=== PATIENT | male | born 1985 | race Caucasian/White ===

== ENCOUNTER 2022-06-08 18:33 | Inpatient (IN) | payer SELFPAY ==
[2022-06-08 19:00] LABS: #Basophils 0.1 thou/uL (0.0-0.2); #Eosinphils 0.1 thou/uL (0.0-0.7); #Monocytes 0.5 thou/uL (0.11-0.59); #Neutrophils 2.9 thou/uL (1.40-6.50); %Basophils 0.9 % (0.0-1.0); %Eosinophils 1.5 % (0.0-10.0); %Lymphocytes 46.3 % (21.0-51.0); %Neutrophils 44.3 % (42.0-75.0); Hemoglobin 15.7 g/dL (14.0-18.0); Mean Corpuscular HGB CONC 35.7 g/dL (32.0-36.0); Mean Corpuscular Hemoglobin 31.5 pg (27.0-31.0); Mean Corpuscular Volume 88.2 fL (78.0-98.0); Platelet Count 259 thou/uL (130-400); RBC Distribution Width 13.2 % (11.5-14.5); Red Blood Cell (RBC) Count 4.97 mill/uL (4.70-6.10); White Blood Cell (WBC) Count 6.4 thou/uL (4.8-10.8)
[2022-06-08] MEDS ORDERED: Folic Acid 1 MG TAB ONE (19:14)
[2022-06-08 19:21] LABS: ALT (SGPT) 29 U/L (8-55); AST (SGOT) 21 U/L (5-34); Acetaminophen Less than 10.0 mcg/mL (10.0-30.0); Albumin 4.5 g/dL (3.5-5.0); Alcohol 151 mg/dL (Less than 10); Alkaline Phosphatase 58 U/L (40-110); Anion Gap 15 mmol/L (10-20); BUN (Urea Nitrogen) 15 mg/dL (8.9-20.6); Bilirubin, Total 0.4 mg/dL (0.2-1.2); Calc. Creatinine Clearance 0 mL/min (70-130); Calcium 9.1 mg/dL (7.8-10.44); Carbon Dioxide 23 mmol/L (22-29); Chloride 106 mmol/L (98-107); Estimated GFR 92; Globulin 3.1 g/dL (2.4-3.5); Glucose 92 mg/dL (70-105); Protein, Total 7.6 g/dL (6.0-8.3); Salicylate Less than 8.0 mg/dL (15.0-30.0); Sodium 140 mmol/L (136-145)
[2022-06-08 19:51] LABS: Lipase 31 U/L (8-78); Magnesium 2.1 mg/dL (1.6-2.6)
[2022-06-08] MEDS ORDERED: chlordiazePOXIDE HCl 25 MG CAP PO SCH (20:00)
[2022-06-08 20:30] LABS: Amphetamine Not Detected (NotDetected); Barbiturates Screen Not Detected (NotDetected); Benzodiazepine Screen Detected (NotDetected); Cocaine Metabolite Screen Not Detected (NotDetected); Methadone Not Detected (NotDetected); Methamphetamine Not Detected (NotDetected); Opiate Screen Not Detected (NotDetected); Oxycodone Screen Not Detected (NotDetected); Phencyclidine (PCP) Not Detected (NotDetected); THC/Cannabinoid Screen Not Detected (NotDetected); Tricyclic Screen Not Detected (NotDetected)
[2022-06-08] MEDS ORDERED: Aspirin Chewable 81 MG TAB ONE (20:53)
[2022-06-08] MEDS ORDERED: Ondansetron ODT 4 MG TAB SL PRN (22:30)
[2022-06-08] MEDS ORDERED: Ondansetron PF 4 MG/2 ML Vial IVP PRN (22:30)
[2022-06-08] MEDS ORDERED: Acetaminophen 325 MG TAB PO PRN (22:30)
[2022-06-08] MEDS: Sodium Chloride 0.9% 1,000 ML IV SCH (22:58)
[2022-06-08] MEDS: Nicotine 14 MG PATCH TD SCH (23:08)
[2022-06-08 23:09] VITALS: BMI 32.8
[2022-06-08] MEDS ORDERED: Triple Antibiotic Ointment 15 GM TUBE TOP SCH (23:15)
[2022-06-08 23:47] LABS: Troponin I Less than 0.010 ng/mL (< 0.028)
[2022-06-09] MEDS ORDERED: Lorazepam 0.5 MG TAB PO SCH ×2 (00:30→13:00)
[2022-06-09] MEDS ORDERED: Electrolyte Replacement Protocol 1 EACH FS PRN (01:30)
[2022-06-09 02:01] LABS: Troponin I Less than 0.010 ng/mL (< 0.028)
[2022-06-09] MEDS: chlordiazePOXIDE HCl 25 MG CAP PO SCH ×2 (02:16→08:40)
[2022-06-09] MEDS: Sodium Chloride 0.9% 1,000 ML IV SCH (05:58)
[2022-06-09] MEDS: Triple Antibiotic Ointment 15 GM TUBE TOP SCH ×2 (11:13→20:17)
[2022-06-09] MEDS ORDERED: Ondansetron PF 4 MG/2 ML Vial IVP PRN (11:33)
[2022-06-09] MEDS: Lorazepam 1 MG TAB PO PRN ×3 (11:38→19:37)
[2022-06-09] MEDS: Multivitamins, Adult 10 ML, Folic Acid 1 MG, Thiamine HCl 100 MG in Dextrose 5 %-0.45 %... IV SCH (13:45)
[2022-06-09] MEDS ORDERED: Lorazepam 2 MG/ML VIAL IM PRN (15:02)
[2022-06-09] MEDS: Lorazepam 1 MG TAB PO SCH ×2 (17:38→21:42)
[2022-06-09] MEDS: Nicotine 14 MG PATCH TD SCH (20:18)
[2022-06-09] MEDS: Minocycline HCl 50 MG CAP PO SCH (21:00)
[2022-06-10] MEDS: Lorazepam 1 MG TAB PO PRN ×2 (02:23→14:00)
[2022-06-10 05:11] LABS: ALT (SGPT) 21 U/L (8-55); AST (SGOT) 16 U/L (5-34); Albumin 3.8 g/dL (3.5-5.0); Alkaline Phosphatase 50 U/L (40-110); Anion Gap 9 mmol/L (10-20); BUN (Urea Nitrogen) 10 mg/dL (8.9-20.6); Bilirubin, Total 0.6 mg/dL (0.2-1.2); Calc. Creatinine Clearance 161 mL/min (70-130); Calcium 8.9 mg/dL (7.8-10.44); Carbon Dioxide 26 mmol/L (22-29); Chloride 105 mmol/L (98-107); Estimated GFR 108; Globulin 2.6 g/dL (2.4-3.5); Glucose 116 mg/dL (70-105); Potassium 3.6 mmol/L (3.5-5.1); Protein, Total 6.4 g/dL (6.0-8.3); Sodium 136 mmol/L (136-145)
[2022-06-10] MEDS ORDERED: Magnesium 2 GM/50 ML(in water) 2 GM in Premix Bag 1 BAG IVPB SCH (05:15)
[2022-06-10] MEDS: Lorazepam 1 MG TAB PO SCH ×4 (05:27→21:15)
[2022-06-10] MEDS: Minocycline HCl 50 MG CAP PO SCH ×2 (08:53→20:27)
[2022-06-10] MEDS: Multivitamins, Adult 10 ML, Folic Acid 1 MG, Thiamine HCl 100 MG in Dextrose 5 %-0.45 %... IV SCH (08:54)
[2022-06-10] MEDS: Triple Antibiotic Ointment 15 GM TUBE TOP SCH ×2 (11:37→20:28)
[2022-06-10] MEDS: Nicotine 14 MG PATCH TD SCH (22:52)
[2022-06-11] MEDS ORDERED: Lorazepam 1 MG TAB PO PRN (01:19)
[2022-06-11] MEDS: Lorazepam 1 MG TAB PO SCH ×2 (03:21→09:29)
[2022-06-11] MEDS: Minocycline HCl 50 MG CAP PO SCH ×2 (09:29→21:39)
[2022-06-11 09:33] LABS: Anion Gap 12 mmol/L (10-20); BUN (Urea Nitrogen) 9 mg/dL (8.9-20.6); Calc. Creatinine Clearance 149 mL/min (70-130); Calcium 9.3 mg/dL (7.8-10.44); Carbon Dioxide 24 mmol/L (22-29); Chloride 107 mmol/L (98-107); Estimated GFR 98; Glucose 110 mg/dL (70-105); Sodium 139 mmol/L (136-145)
[2022-06-11] MEDS ORDERED: chlordiazePOXIDE HCl 25 MG CAP PO SCH (10:15)
[2022-06-11] MEDS: Triple Antibiotic Ointment 15 GM TUBE TOP SCH ×2 (11:17→21:44)
[2022-06-11] MEDS: Multivitamins, Adult 10 ML, Folic Acid 1 MG, Thiamine HCl 100 MG in Dextrose 5 %-0.45 %... IV SCH (11:17)
[2022-06-11] MEDS ORDERED: Magnesium 2 GM/50 ML(in water) 2 GM in Premix Bag 1 BAG IVPB SCH (14:00)
[2022-06-11] MEDS: chlordiazePOXIDE HCl 25 MG CAP PO SCH ×2 (14:57→21:39)
[2022-06-11] MEDS: Cephalexin 250 MG CAP PO SCH ×2 (14:57→18:05)
[2022-06-11] MEDS ORDERED: Lorazepam 0.5 MG TAB PO SCH (16:00)
[2022-06-12] MEDS: Cephalexin 250 MG CAP PO SCH ×3 (00:20→11:23)
[2022-06-12] MEDS: Nicotine 14 MG PATCH TD SCH (00:23)
[2022-06-12] MEDS ORDERED: Lorazepam 0.5 MG TAB PO PRN (01:19)
[2022-06-12 04:57] LABS: #Eosinphils 0.2 thou/uL (0.0-0.7); #Lymphocytes 2.3 thou/uL (1.20-3.40); #Monocytes 0.5 thou/uL (0.11-0.59); #Neutrophils 3.2 thou/uL (1.40-6.50); %Basophils 0.8 % (0.0-1.0); %Eosinophils 2.6 % (0.0-10.0); %Lymphocytes 37.1 % (21.0-51.0); %Monocytes 8.2 % (0.0-10.0); %Neutrophils 51.3 % (42.0-75.0); Mean Corpuscular HGB CONC 34.2 g/dL (32.0-36.0); Mean Corpuscular Hemoglobin 30.9 pg (27.0-31.0); Mean Corpuscular Volume 90.2 fL (78.0-98.0); Mean Platelet Volume 6.1 fL (7.4-10.4); Platelet Count 208 thou/uL (130-400); Red Blood Cell (RBC) Count 4.84 mill/uL (4.70-6.10); White Blood Cell (WBC) Count 6.3 thou/uL (4.8-10.8)
[2022-06-12 05:18] LABS: Anion Gap 11 mmol/L (10-20); BUN (Urea Nitrogen) 12 mg/dL (8.9-20.6); Calc. Creatinine Clearance 130 mL/min (70-130); Calcium 9.3 mg/dL (7.8-10.44); Carbon Dioxide 28 mmol/L (22-29); Chloride 103 mmol/L (98-107); Estimated GFR 83; Glucose 105 mg/dL (70-105); Magnesium 2.2 mg/dL (1.6-2.6); Sodium 138 mmol/L (136-145)
[2022-06-12] MEDS: Minocycline HCl 50 MG CAP PO SCH (09:39)
[2022-06-12] MEDS: chlordiazePOXIDE HCl 25 MG CAP PO SCH (09:39)
[2022-06-12] MEDS: Triple Antibiotic Ointment 15 GM TUBE TOP SCH (09:41)
[2022-06-12] MEDS ORDERED: chlordiazePOXIDE HCl 25 MG CAP PO SCH ×2 (10:00→15:00)
[2022-06-12 12:07] VITALS: BP 105/60; TEMP 98.2
[2022-06-12] MEDS ORDERED: Polyethylene Glycol 3350 17 GM Packet PO SCH (12:30)
== END 2022-06-12 13:20 | disposition home or self-care (01) | DRG 897 ==
LOC: ERS 18:33 → 2NO 21:06 → OBSVTOIN 06-09 11:58
PROVIDERS: ADMIT Student in an Organized Health Care Education/Training Program; ATTEND Family Medicine
PROC: HZ2ZZZZ Detoxification Services for Substance Abuse Treatment (ICD-10-PCS; principal; 2022-06-09)
DX: F10.229 Alcohol dependence with intoxication, unspecified (principal); L03.114 Cellulitis of left upper limb; F10.239 Alcohol dependence with withdrawal, unspecified; Z20.822 Contact with and (suspected) exposure to COVID-19; F41.9 Anxiety disorder, unspecified; F31.9 Bipolar disorder, unspecified; Y90.6 Blood alcohol level of 120-199 mg/100 ml; F17.210 Nicotine dependence, cigarettes, uncomplicated; E66.9 Obesity, unspecified; Z68.33 Body mass index [BMI] 33.0-33.9, adult
CPT/HCPCS: 36415; 80048; 80053; 80306; 80307; 83690; 83735; 84443; 84484; 85025; 93005; 94760; 96375; 97139; G0378; J2405; J3411; J3475; J3490; J7042; J7050; Q0162; U0003; U0005

== ENCOUNTER 2022-07-07 03:00 | Emergency (ER) | payer SELFPAY | END 2022-07-07 05:34 | disposition home or self-care (01) | LOC: ERS 03:00 | DX: F10.239 Alcohol dependence with withdrawal, unspecified (principal); F17.220 Nicotine dependence, chewing tobacco, uncomplicated | CPT/HCPCS: 99284 ==